=== PATIENT | female | born 1995 | race Caucasian/White ===

== ENCOUNTER 2017-07-31 19:19 | Emergency (ER) | payer SELFPAY ==
[2017-07-31 19:25] VITALS: BP 131/65
--- NOTE | 2017-07-31 19:31 | EDPHY ---
H & P Stated Complaint: fall on head- intoxicted Time Seen by Provider: 07/31/17 19:31 - Personal History LMP (Females 10-55): Unknown - Medical/Surgical History Hx Asthma: No Hx Chronic Respiratory Disease: No Hx Diabetes: No Hx Cardiac Disease: No Hx Renal Disease: No Hx Cirrhosis: No Hx Alcoholism: No Hx HIV/AIDS: No Hx Splenectomy or Spleen Trauma: No - Social History Smoking Status: Current every day smoker Constitutional: Initial Vital Signs Temperature (C) 37 C 07/31/17 19:23 Heart Rate 100 07/31/17 19:23 Respiratory Rate 20 07/31/17 19:23 Blood Pressure 131/65 H 07/31/17 19:23 O2 Sat (%) 96 07/31/17 19:23 O2 Delivery Mode Room Air Allergies/Adverse Reactions: Unable to Assess Allergy (Unverified 07/31/17 19:23) Medical Decision Making - Diagnostics Imaging Results: Imaging Impressions Head CT 07/31/17 19:36 Impression: Chronic sinus related change. Otherwise normal CT head without contrast. Results called and discussed with Bobby Turner MD at 07/31/2017 20:28. Imaging: Discussed imaging studies w/ outbound call center representative Radiologist ED Course/Re-evaluation: CHIEF COMPLAINT: "I fell down and I hit my head" HISTORY OF PRESENT ILLNESS: This patient is a 22 year old female complaining of head pain secondary to a fall shortly prior to arrival. She and her friends had been drinking alcohol prior to the incident. She did not lose consciousness. She denies nausea or vomiting. Initially, she had visual disturbance similar to nystagmus. She had a sensation of numbness in her legs as well. She notes a small depression to right side of her head. She denies any other injuries. She denies any other recent trauma or illness. REVIEW OF SYSTEMS: A 10 point review of systems was performed and is negative with the exception of the elements mentioned in the history of present illness. PHYSICAL EXAM: HR, BP, O2 Sat, RR. Temp noted General Appearance: Alert, well hydrated, appropriate, and non-toxic appearing. Head: Depression to right frontal scalp. Eyes: Pupils equal, round, reactive to light and accommodation, EOMI, no trauma , no injection. Ears: Clear bilaterally, no perforation, normal landmarks Nose: Atraumatic, no rhinorrhea, clear. Throat: There is no erythema or exudates, no lesions, normal tonsils, mucus membranes moist. Neck: Supple, 2+ carotid upstroke, nontender, no lymphadenopathy. Respiratory: No retractions, no distress, no wheezes, and no accessory muscle use. Lungs are clear to auscultation bilaterally. Cardiovascular: Regular rate and rhythm, no murmurs, rubs, or gallops. Bilateral carotid, radial, dorsalis pedis, and posterior tibial pulses intact. Good capillary refill all extremities. Gastrointestinal: Abdomen is soft, nontender, non-distended, no masses, no rebound, no guarding, no peritoneal signs. Musculoskeletal: Normal active ROM of all extremities, atraumatic. Neurological: Alert, appropriate, and interactive. The patient has normal DTRs and non-focal cranial nerves, motor, sensory, and cerebellar exam. Skin: No rashes, good turgor, no nodules on palpation. Past medical history: Denies. Past surgical history: Noncontributory Family history: Noncontributory. Social history: Friend at bedside. Employed. Lives in [place]. . DIFFERENTIAL DIAGNOSIS: The differential diagnosis for the patient's trauma included but was not limited to intracranial injury, long bone and pelvic bone fractures, spinal injury, intra-abdominal injury, and intra-thoracic injury. MEDICAL DECISION MAKIN22 y/o female presents with a head injury following a fall. Exam reveals a small depression over her right frontal scalp. No neurologic deficits. Given the patient's intoxicated appearance and unclear history, plan for CT head to rule out acute processes. 20:[address] Lincoln, radiologist. CT head negative for acute processes. 20:30 Reassessed patient. Discussed results of CT. Plan to discharge home in good condition. Follow up and return precautions discussed. Referral to concussion specialist given. The patient is comfortable with this plan. Departure - Departure Disposition: Home, Routine, Self-Care Clinical Impression: Concussion Qualifiers: Encounter type: initial encounter Loss of consciousness presence/duration: without LOC Qualified Code(s): S06.0X0A - Concussion without loss of consciousness, initial encounter Condition: Good Instructions: Concussion (ED) Additional Instructions: 1. Follow-up with your primary care doctor this week. We have referred you to a concussion specialist, please follow up with her as well for continued management of your symptoms. 2. Brain rest - try to avoid TV, video games, cell phones, or reading while symptoms persist. You may reintroduce activities as tolerated. 3. Physical rest - avoid activities that could result in further head injury or that require prolonged attention until your symptoms completely resolve. 4. You may take Tylenol or Ibuprofen as directed below as needed for pain. 5. Return to the Emergency Department for severe headache, vomiting, vision changes, confusion, fever or other concerns. Adult Pain & Fever Control: We recommend Acetaminophen (Tylenol) and Ibuprofen (Motrin,Advil) for pain and fever control. When fever is high or pain severe, both drugs can be used at the same time, but at different intervals. Please note the time differences. Your dose is: Acetaminophen 650mg every 4 to 6 hours Ibuprofen 400mg every 6-8 hours with food Note: do not take Acetaminophen with Hydrocodone (Vicodin, Lortab) or Oxycodone (Percocet). These medications also contain Acetaminophen. No more than 3000mg of Acetaminophen should be taken in 24 hours (for an adult). Referrals: Lashae Holguin MD [Medical Doctor] - As per Instructions Benito Brito MD [[facility] [place] Primary Care Provider] - As per Instructions Report Scribed for: Bobby Turner Report Scribed by: Mary Luna Date of Report: 07/31/17 Time of Report: 19:32
== END 2017-07-31 20:53 | disposition home or self-care (01) ==
DX: S06.0X0A Concussion without loss of consciousness, initial encounter (principal); F17.200 Nicotine dependence, unspecified, uncomplicated; W18.39XA Other fall on same level, initial encounter